=== PATIENT | male | born 1970 | race Caucasian/White ===

== ENCOUNTER 2022-10-28 10:30 | Outpatient (RCR) | payer OTHER, SELFPAY | END 2023-01-04 10:34 | disposition home or self-care (01) | PROVIDERS: PCP Internal Medicine; Visit Provider Internal Medicine | DX: M25.562 Pain in left knee (principal); Z51.89 Encounter for other specified aftercare | CPT/HCPCS: 97110; 97161 ==

== ENCOUNTER 2023-09-29 09:20 | Outpatient (CLI) | payer OTHER, SELFPAY ==
--- OUTSIDE RECORDS SUMMARY | 2023-10-06 01:53 | XMS_ITS | Clinical Summary ---
Author Name Unknown Organization [address] [facility] Address [place], [place] [address] Care Team Providers Care Model Maker Apprentice Name Role Phone Kalyani Colunga MD Primary Care Provider [phone] Allergies No known active allergies Medications Medication Sig Dispensed Refills Start Date End Date Status GLUCOSAMINE HCL/CHONDR MONTGOMERY A NA (GLUCOSAMINE-CHONDROI TIN) 1,500-1,200 mg/30 mL Liqd Take 30 mL by mouth once daily. 1 Bottle 0 02/28/2013 Active citalopram (CELEXA) 20 mg tablet Take 1 tablet by mouth once daily. 0 03/12/2014 Active simvastatin (ZOCOR) 20 mg tablet 0 11/03/2021 Active fluticasone (50 mcg per actuation) nasal solution (FLONASE) 0 10/03/2021 Active buPROPion (WELLBUTRIN XL) 150 mg Extended-Release tablet 0 03/19/2015 Active oxyCODONE (ROXICODONE) 5 mg immediate release tabletIndications:Bun ion, right Take 1-2 Tablets (5-10 mg) by mouth every 4 hours if needed for Pain. 20 Tablet 0 05/16/2023 Active Active Problems Problem Noted Date Diagnosed Date Ganglion from inferior labral tear of shoulder 0 03/14/2013 Adjustment disorder with mixed anxiety and depre ssed mood 07/16/2008 Immunizations Name Administration Dates Next Due Influenza, IIV3 (Age >=3 years) 07/03/2014 Td (Age >=7 Years) 03/03/2004 Tdap, Unspecified 09/27/2014 Social History Tobacco Use Types Packs/Day Years Used Date Smoking Tobacco: Never Smokeless Tobacco: Never Tobacco Cessation:Counseling Given: Yes Alcohol Use Standard Drinks/Week Comments Not Asked 0 (1 standard drink = 0.6 oz pur e alcohol) occasional Sex and Gender Information Value Date Recorded Sex Assigned at Male 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 Gender Identity Male 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 Sexual Orientation Straight 11/20/2021 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 Obstetrics History Last Filed Vital Signs Vital Sign Reading Time Taken Comments Blood Pressure 124/83 06/29/2023 2:14 PM CDT Pulse 94 06/29/2023 2:14 PM CDT Temperature 36.5 ??C (97.7 ??F) 06/02/2023 11:27 AM C DT Respiratory Rate 16 05/16/2023 9:19 AM CDT Oxygen Saturation 95% 06/29/2023 2:14 PM CDT Inhaled Oxygen Concentration - - Weight 96.2 kg (212 lb) 05/16/2023 6:52 AM CDT Height 177.8 cm (5' 10) 05/16/2023 6:52 AM CDT Body Mass Index 30.42 05/16/2023 6:52 AM CDT Plan of Treatment Health Maintenance Due Date Last Done Comments Depression screening for age 12+ 1981 BMI (ht and wt on same day) for age 18+ 1987 Hepatitis C screening for age 18-79 1987 Colonoscopy through age 75 2014 Lipids for age 45-75 2014 Zoster (shingles) series for age 50+ (1 of 2) 2019 COVID-19 vaccine series (2022- season) 2023 08/25/2022, 04/01/2022, 08/19/2021, Additional history exists Influenza for age 50-64 05/20/2023 07/03/2014 Tetanus booster 09/27/2024 09/27/2014, 03/03/2004 HIV for age 15-65 Completed 03/26/2014, 03/12/2014 Tdap Completed 09/27/2014 Pneumococcal series for age 6-64 Aged Out No longer eligible based on patient's age to complete this topic Medical Devices Implanted Type Area [employer] Producer Device Identifier Shelf Expiration Date Model / Serial / Lot Cannulated Screw 3.0 Headed Implanted:Qty: 1 on 05/16/2023 by Murali Burnett DPM at [facility] Right: Foot [employer] [id number] / / Cannulated Screw 3.0 Headed Implanted:Qty: 1 on 05/16/2023 by Murali Burnett DPM at [facility] Right: Foot [id number] / / Explanted Type Area Television News Producer Device Identifier Shelf Expiration Date Model / Serial / Lot K-Wire 3.0mm Non-Thrd Diameter 1.15 Mm - [id number] Explanted:Qty: 3 on 05/16/2023 by Murali Burnett DPM at [facility] Right: Foot [employer] [id number] / / Cannulated Screw 3.0mm Headed Explanted:Qty: 1 on 05/16/2023 by Murali Burnett DPM at [facility] Right: Foot [employer] [id number] / / Advance Directives Latest Code Status on File Code Status Date Activated Date Inactivated Comments Full Code 05/16/2023 6:42 AM 05/16/2023 12:47 PM Question Answer Comments Code Status Discussion: Reviewed Preferences Care Teams Model Maker Apprentice Relationship Specialty Start Date End Date Kalyani Colunga MD [address] [place], [place] [id number] PCP - General Internal Medicine 02/28/13
== END 2023-09-29 09:21 | disposition home or self-care (01) ==
LOC: NFLDREF 10-06 01:51
PROVIDERS: PCP Internal Medicine; Referring Provider Internal Medicine; Visit Provider Internal Medicine
DX: E78.5 Hyperlipidemia, unspecified (principal)
CPT/HCPCS: 80061

== ENCOUNTER 2024-09-04 10:14 | Outpatient (CLI) | payer OTHER, SELFPAY | END 2024-09-04 10:15 | disposition home or self-care (01) | LOC: NFLDREF 23:58 | PROVIDERS: PCP Internal Medicine; Referring Provider Internal Medicine; Visit Provider Internal Medicine | DX: E78.5 Hyperlipidemia, unspecified (principal); Z12.5 Encounter for screening for malignant neoplasm of prostate | CPT/HCPCS: 80061; G0103 ==